=== PATIENT | female | born 1960 | race Caucasian/White ===

== ENCOUNTER → 2019-06-04 | Outpatient (CLI) | payer BC | LOC: COL.RAD 11:57 | DX: R60.0 Localized edema (principal) ==

== ENCOUNTER → 2019-07-27 | Outpatient (CLI) | payer BC | LOC: MC.RAD 07:00 | DX: Z12.31 Encounter for screening mammogram for malignant neoplasm of breast (principal) ==

== ENCOUNTER 2020-09-07 16:00 | Emergency (ER) | payer OTHER ==
[~2020-09-07] VITALS: Ht 162.6 cm; Wt 65.9 kg
[2020-09-07 16:04] VITALS: TEMP 97.5
[2020-09-07] MEDS ORDERED: TYLENOL 325MG325 MG PO (17:37)
[2020-09-07] MEDS ORDERED: ROXICODONE 55 MG/TAB PO (17:37)
[2020-09-07] MEDS ORDERED: SURFAK 240240 MG/CAP PO (17:37)
[2020-09-07] MEDS ORDERED: CRUTCHES MC (17:38)
[2020-09-07 17:55] VITALS: BP 134/75; PULSE 82
== END 2020-09-07 17:55 | disposition home or self-care (01) ==
LOC: COL.ER 16:00
DX: S82.832A Other fracture of upper and lower end of left fibula, initial encounter for closed fracture (principal); W11.XXXA Fall on and from ladder, initial encounter
CPT/HCPCS: L4386

== ENCOUNTER → 2021-07-08 | Outpatient (CLI) | payer OTHER ==
[~2021-07-08] MED LIST: CRUTCHES MC; ROXICODONE 55 MG/TAB PO; SURFAK 240240 MG/CAP PO; TYLENOL 325MG325 MG PO
== END ==
LOC: MC.RAD 04-30 13:00
DX: Z12.31 Encounter for screening mammogram for malignant neoplasm of breast (principal)